=== PATIENT | male | born 1985 | race Caucasian/White ===

== ENCOUNTER 2021-02-12 12:00 | Emergency (ER) | payer MEDICAID, OTHER ==
--- NOTE | 2021-02-12 12:10 | EDM.PDOC ---
ED HPI GENERAL MEDICAL PROBLEM - General Chief Complaint: Upper Extremity Injury/Pain Stated Complaint: RIWGHT SHOULDER PAIN Time Seen by Provider: 02/12/21 12:09 Source of Information: Reports: Patient History Limitations: Reports: No Limitations - History of Present Illness INITIAL COMMENTS - FREE TEXT/NARRATIVE: Cary, 35-year-old male, presents with right arm numbness, hand numbness, and some shoulder numbness. He gives a past history of 2007 having a significant shoulder injury of which at the time he did not have insurance allowing MRI of the shoulder. Since then se emingly improved up until recently when he has noted burning numbness to the forearm and arm as well as across the shoulder at times. Numbness goes into the fingers and hands as well depending on positioning. He is unable to raise his arm above the level of the shoulder which is likely in association with the previous injury involving rotator cuff. 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 Denies any exposures illness or other contributing factors with no recent injury. Duration: Chronic Location: Reports: Upper Extremity, Right Right Shoulder Pain Score (Numeric/FACES): 5 - Related Data Allergies Allergy/AdvReac Type Severity Reaction Status Date / Time amoxicillin Allergy Cannot Verified 02/12/21 12:18 Remember Home Meds: Home Meds . [No Known Home Meds] 02/12/21 [History] Past Medical History HEENT History: Reports: Impaired Vision Respiratory History: Reports: Other (See Below) ( bronchitis) Musculoskeletal History: Reports: Other (See Below) (Right shoulder injury 2007) Social & Family History - Family History Family Medical History: No Pertinent Family History - Tobacco Use Tobacco Use Status *Q: Current Every Day Tobacco User Tobacco Use Within Last Twelve Months: Cigarettes Years of Tobacco use: 15 Used Tobacco, but Quit: No Smoking Cessation Information Provided To Patient: No ED ROS GENERAL - Review of Systems Review Of Systems: Comprehensive ROS is negative, except as noted in HPI. ED EXAM, GENERAL - Physical Exam Exam: See Below Free Text/Narrative:: Alert oriented in no acute distress. HEENT is negative discharge or deformity. Neck is soft supple with no lymphadenopathy. No respiratory distress with clear thorax is noted. 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 Left arm is benign for any contributing factors radial pulse present and remains full and present despite positioning with no numbness or tingling induced. Right arm is unable to be raised above the level of the shoulder secondary of pain and also of which she states at times a clicking popping sensation. While raising his arm and passive positioning I am able to induce numbness tingling and a burning sensation to the bicep forearm and tingling going into the hand and fingers. I do not appreciate any crepitus or clicking under passive motion. Percussion over the base of the cervical spine to the right side of the shoulder also induces some tingling sensation going outward into the shoulder region and arm. Light pressure in the axilla induces a blocking of the nerve bed of the brachial plexus inducing similar symptoms to what he obtains with positioning and motion on his daily skills. With raising of the right arm radial pulse remains intact but may be slightly lessened with positioning. Course - Vital Signs Last Recorded V/S: Last Vital Signs Temp 98.1 F 02/12/21 12:18 Pulse 45 L 02/12/21 12:18 Resp 18 02/12/21 12:18 BP 120/69 02/12/21 12:18 Pulse Ox 99 02/12/21 12:18 - Orders/Labs/Meds Orders: Active Orders 24 hr Category Date Time Status Chest 1V Frontal [CR] Stat Exams 02/12/21 12:24 Ordered Departure - Departure Time of Disposition: 12:36 Disposition: Home, Self-Care 01 Condition: Good Clinical Impression: Chronic right shoulder pain, Injury to nerve of right shoulder girdle and upper extremity, Cervical radiculopathy at C7 - Discharge Information *PRESCRIPTION DRUG MONITORING PROGRAM REVIEWED*: Not Applicable *COPY OF PRESCRIPTION DRUG MONITORING REPORT IN PATIENT AXEL: Not Applicable Instructions: Axillary Nerve Injury, Shoulder Pain, [id number], Cervical Radiculopathy, [id number] Referrals: Mariangel Jacobo MD [Physician] - Forms: ED Department Discharge Additional Instructions: You will need to see a provider at your clinic, [facility], to discuss reevaluate and obtain orders for either EMG or MRI which may include cervical spine as well as shoulder due to symptoms produced with positioning. Chest x-ray we obtained today to rule out apical tumor as a male so because radiculopathy of the extremity. Avoid excess/repetitions of the shoulder/arm as much as possible. Avoid sleeping positioning with the right arm away from your body or raised beyond 45 degrees. You may attempt heat or ice on a rotational basis to see if either or or both benefit your shoulder. Acetaminophen/Tylenol may help with your discomfort, but ibuprofen/Motrin or Advil will help more with inflammation. Contact your clinic to be seen as soon as possible Sepsis Event Note (ED) - Focused Exam Vital Signs: Vital Signs Temp Pulse Resp BP Pulse Ox 02/12/21 12:18 98.1 F 45 L 18 120/69 99 - Problem List & Annotations (1) Chronic right shoulder pain SNOMED Code(s): 73853875578723177 Code(s): M25.511 - PAIN IN RIGHT SHOULDER; G89.29 - OTHER CHRONIC PAIN Status: Chronic Priority: High Current Visit: Yes (2) Injury to nerve of right shoulder girdle and upper extremity SNOMED Code(s): 159195118, 589774343 Code(s): S44.91XA - INJURY OF UNSP NERVE AT SHLDR/UP ARM, RIGHT ARM, INIT Status: Acute Priority: High Current Visit: Yes Qualifiers: Encounter type: initial encounter Qualified Code(s): S44.91XA - Injury of unspecified nerve at shoulder and upper arm level, right arm, initial encounter (3) Cervical radiculopathy at C7 SNOMED Code(s): 63983904 Code(s): M54.12 - RADICULOPATHY, CERVICAL REGION Status: Acute Priority: High Current Visit: Yes - Problem List Review Problem List Initiated/Reviewed/Updated: Yes - My Orders Last 24 Hours: My Active Orders 02/12/21 12:24 Chest 1V Frontal [CR] Stat - Assessment/Plan Last 24 Hours: My Active Orders 02/12/21 12:24 Chest 1V Frontal [CR] Stat Plan: You will need to see a provider at your clinic, [facility], to discuss reevaluate and obtain orders for either EMG or MRI which may include cervical spine as well as shoulder due to symptoms produced with positioning. Chest x-ray we obtained today to rule out apical tumor as a male so because radiculopathy of the extremity. Avoid excess/repetitions of the shoulder/arm as much as possible. Avoid sleeping positioning with the right arm away from your body or raised beyond 45 degrees. You may attempt heat or ice on a rotational basis to see if either or or both benefit your shoulder. Acetaminophen/Tylenol may help with your discomfort, but ibuprofen/Motrin or Advil will help more with inflammation. Contact your clinic to be seen as soon as possible.
--- NOTE | 2021-02-12 14:43 | CR ---
[id number] RAD/RAD Chest PA or AP 1V EXAM: SINGLE VIEW CHEST. INDICATION: UPPER EXTREMITY NUMBNESS COMPARISON: CORRELATION IS MADE WITH MARCH 10, 2007 FINDINGS: The lungs are clear The cardiac silhouette is normal If symptoms persist, consider contrast CT soft tissue chest IMPRESSION: NEGATIVE PLAIN FILM EXAM Darinel Estevez MD 02/12/21 [id number] Thank you for allowing us to participate in the care of your patient.
== END 2021-02-12 12:59 | disposition home or self-care (01) ==
LOC: KA.ED 12:00
DX: S44.91XA Injury of unspecified nerve at shoulder and upper arm level, right arm, initial encounter (principal); M54.12 Radiculopathy, cervical region; Z88.0 Allergy status to penicillin; Z72.0 Tobacco use; X58.XXXA Exposure to other specified factors, initial encounter; Y92.61 Building [any] under construction as the place of occurrence of the external cause; Y99.0 Civilian activity done for income or pay
CPT/HCPCS: 71045; 99284; 99284-25

== ENCOUNTER 2021-07-09 04:16 | Emergency (ER) | payer MEDICAID ==
[2021-07-09] MEDS: Ketorolac 60 MG/2 ML SDV IM ONE (05:03)
[2021-07-09 05:08] LABS: ANION GAP 14.4 mmol/L (5-15); CHLORIDE,CL 102 mmol/L (98-107); SODIUM,NA 138 mmol/L (136-145)
[2021-07-09] MEDS: Ondansetron 4 MG Tab.DIS ONE (05:31)
[2021-07-09] MEDS: Ondansetron 4 MG Tab.DIS PO ONE (05:32)
[2021-07-09 05:34] VITALS: BP 121/82; PULSE 49
== END 2021-07-09 08:12 | disposition home or self-care (01) ==
LOC: KA.ED 04:16
DX: R07.89 Other chest pain (principal); M54.2 Cervicalgia; M25.512 Pain in left shoulder; M54.6 Pain in thoracic spine; Z88.0 Allergy status to penicillin; Z91.030 Bee allergy status
CPT/HCPCS: 36415; 71250; 80053; 84484; 85025; 85379; 86140; 93010; 96372; 99284; 99285-25; A9270-GY; J1885